=== PATIENT | female | born 1945 | race Caucasian/White ===

== ENCOUNTER 2016-06-28 09:21 | Outpatient (CLI) | payer BC | END 2016-06-28 18:32 | disposition home or self-care (01) | LOC: SUS 09:21 | PROVIDERS: ATTEND Family Medicine | DX: N63 Unspecified lump in breast (principal); Z85.3 Personal history of malignant neoplasm of breast | CPT/HCPCS: 76642 ==

== ENCOUNTER 2017-03-01 10:20 | Outpatient (CLI) | payer BC | END 2017-03-01 19:16 | disposition home or self-care (01) | LOC: SMA 10:20 | PROVIDERS: ATTEND Internal Medicine Hospice and Palliative Medicine | DX: C50.911 Malignant neoplasm of unspecified site of right female breast (principal) | CPT/HCPCS: 76641; G0204 ==